=== PATIENT | female | born 1990 | race African-American/Black ===

== ENCOUNTER 2019-11-07 21:13 | Emergency (ER) | payer OTHER ==
[~2019-11-07] VITALS: Ht 160 cm; Wt 45.8 kg
[~2019-11-07 21:13] MED LIST: AMOXICILLIN500 M1 PO; AUGMENTIN 875-1 EACH PO; BACTRIM DS TAB1 EACH PO; CYMBALTA20 MG PO; FLAGYL500 M1 PO; FLEXERIL PO; IBUPROFEN 600600 M1 PO; PAXIL 20 MG TAB20 MG PO; ZOFRAN ODT4 MG PO
[2019-11-07 22:04] LABS: ABSOLUTE NEUTROPHILS 5.8 thou/uL (1.4-8.2); BASOPHILS 0.4 % (0.0-2.0); EOSINOPHILS 0.7 % (0.0-3.0); LYMPHOCYTES 15.8 % (24.0-44.0); MCH 27.5 pg (26.0-34.0); MCHC 32.6 g/dL (28.0-37.0); MCV 84.5 fL (80.0-100.0); MONOCYTES 4.2 % (1.0-8.0); PLATELET COUNT 178 thou/uL (150-400); POLYS 78.9 % (36.0-66.0); RBC 5.08 mil/uL (4.20-5.00); RDW 13.1 % (10.5-14.5); WBC 7.4 thou/uL (4.0-11.0)
[2019-11-07 22:06] LABS: URINE BILIRUBIN NEGATIVE (Negative); URINE BLOOD NEGATIVE (Negative); URINE CLARITY CLEAR; URINE COLOR YELLOW; URINE GLUCOSE-RANDOM* NEGATIVE (Negative); URINE KETONES NEGATIVE (Negative); URINE NITRITE-REFLEX NEGATIVE (Negative); URINE PROTEIN (DIPSTICK) TRACE (Negative); URINE UROBILINOGEN 0.2 E.U./dl (0.2-1.0)
[2019-11-07 22:15] LABS: URINE LEUKOCYTES-REFLEX 1+ (Negative)
[2019-11-07 22:16] LABS: CASTS None Seen /LPF (None Seen); CRYSTALS None Seen /LPF (None Seen); SQUAMOUS 0-3 Few /LPF (0-3)
[2019-11-07 22:17] LABS: BACTERIA-REFLEX 1-9 Few /HPF (None Seen); URINE RBC None Seen /HPF (0-2); URINE WBC-REFLEX 6-15 Few /HPF (0-5)
[2019-11-07 22:26] LABS: CALCIUM 9.6 mg/dL (8.5-10.1); CREATININE 0.8 mg/dL (0.6-1.0); POTASSIUM 4.2 mmol/L (3.5-5.1)
[2019-11-07 22:32] LABS: ALBUMIN 3.8 g/dL (3.4-5.0); TOTAL BILIRUBIN 0.3 mg/dL (<0.1-1.0); TOTAL PROTEIN 7.6 g/dL (6.4-8.2)
[2019-11-07 23:37] VITALS: BP 97/49
[2019-11-07] MEDS ORDERED: ZOFRAN ODT4 MG PO (23:43)
[2019-11-07] MEDS ORDERED: REGLAN 10 MG TA10 MG PO (23:43)
[2019-11-07] MEDS ORDERED: CARAFATE 1 GM TA1 G1 PO (23:43)
[2019-11-07] MEDS ORDERED: PROTONIX40 M2 PO (23:43)
[2019-11-07] MEDS ORDERED: KEFLEX500 M1 PO (23:43)
--- NOTE | 2019-11-08 17:19 | EKG ---
[facility] [place] [address] ELECTROCARDIOGRAM REPORT Name: VINNY CORBETT [id number] Admission: 11/07/19 Attend Phys: Discharge: 11/07/19 Date of : 86 Report #: [id number] THIS REPORT FOR: cc: ONI - Julia family physician/PCP ONI - Julia family physician/PCP Pradip Meyer MD ~ THIS REPORT FOR: //name// [facility] ED Test Date: 2019-11-07 Test Time: 22:41:24 Pat Name: VINNY CORBETT Department: Room: Gender: F Padder Cushion: NO : 1990 Requested By: Lenin Herrmann Order Number: [id number] MD: Pradip Meyer Measurements Intervals Dante Rate: 64 P: 71 TX: 183 QRS: 26 QRSD: 103 T: 29 QT: 436 QTc: 450 Interpretive Statements Sinus rhythm Atrial premature complex ST elev, probable normal early repol pattern No previous ECG available for comparison Electronically Signed On 11-08-2019 17:18:38 CDT by Pradip Meyer [email or web address] <ELECTRONICALLY SIGNED> By: Pradip Meyer MD 11/08/19 1718 [id number] Pradip Meyer MD /EPI
== END 2019-11-07 23:50 | disposition home or self-care (01) ==
LOC: ER 21:13
PROVIDERS: Emergency Medicine
DX: N39.0 Urinary tract infection, site not specified (principal); K29.70 Gastritis, unspecified, without bleeding; Z79.899 Other long term (current) drug therapy

== ENCOUNTER 2020-06-01 15:25 | Emergency (ER) | payer OTHER ==
[~2020-06-01] VITALS: Ht 160 cm; Wt 45.4 kg
[~2020-06-01 15:25] MED LIST changes: +CARAFATE 1 GM TA1 G1 PO; +KEFLEX500 M1 PO; +PROTONIX40 M2 PO; +REGLAN 10 MG TA10 MG PO
[2020-06-01] MEDS ORDERED: CYCLOBENZAPRINE10 MG PO (15:53)
[2020-06-01 17:12] LABS: ABSOLUTE NEUTROPHILS 3.3 thou/uL (1.4-8.2); BASOPHILS 0.4 % (0.0-2.0); EOSINOPHILS 0.7 % (0.0-3.0); HEMATOCRIT 39.2 % (37.0-47.0); HEMOGLOBIN 12.9 gm/dL (12.0-15.0); LYMPHOCYTES 27.5 % (24.0-44.0); MCH 27.8 pg (26.0-34.0); MCHC 32.9 g/dL (28.0-37.0); MCV 84.5 fL (80.0-100.0); MONOCYTES 5.7 % (1.0-8.0); PLATELET COUNT 125 thou/uL (150-400); POLYS 65.7 % (36.0-66.0); RBC 4.64 mil/uL (4.20-5.00); RDW 12.9 % (10.5-14.5)
[2020-06-01 17:31] LABS: CALCIUM 8.7 mg/dL (8.5-10.1); CREATININE 0.7 mg/dL (0.6-1.0); POTASSIUM 3.8 mmol/L (3.5-5.1)
[2020-06-01 17:33] LABS: ALBUMIN 3.9 g/dL (3.4-5.0); TOTAL BILIRUBIN 0.5 mg/dL (0.2-1.0); TOTAL PROTEIN 7.8 g/dL (6.4-8.2)
[2020-06-01 19:56] LABS: URINE BILIRUBIN NEGATIVE (Negative); URINE BLOOD NEGATIVE (Negative); URINE CLARITY CLEAR; URINE COLOR YELLOW; URINE GLUCOSE-RANDOM* NEGATIVE (Negative); URINE KETONES NEGATIVE (Negative); URINE LEUKOCYTES-REFLEX NEGATIVE (Negative); URINE NITRITE-REFLEX NEGATIVE (Negative); URINE PROTEIN (DIPSTICK) NEGATIVE (Negative)
[2020-06-01] MEDS ORDERED: BENTYL 10 MG CA10 M1 PO (20:05)
[2020-06-01 20:19] VITALS: BP 106/84
== END 2020-06-01 20:21 | disposition home or self-care (01) ==
LOC: ER 15:25
PROVIDERS: Nurse Practitioner Family
DX: K59.00 Constipation, unspecified (principal); Z90.711 Acquired absence of uterus with remaining cervical stump; Z79.899 Other long term (current) drug therapy